=== PATIENT | male | born 1965 | race Caucasian/White ===

== ENCOUNTER 2017-03-14 07:51 | Day surgery (SDC) | payer OTHER ==
[2017-03-11 09:27] VITALS: BMI 34.0
[~2017-03-14] VITALS: Ht 175.3 cm; Wt 106.4 kg
[~2017-03-14 07:51] MED LIST: INDOMETHACIN 50 MG SUPP PR ONE; LACTATED RINGER'S 1000ML 1,000 ML IV SCH; OXYC15TA89 PO; SERT50TA PO; SIMV40TA4 PO; TIZA4CAP PO; [UNRECOGNIZED DRUG - CODE] PO
--- NOTE | 2017-03-14 08:21 | Endo History and Physical ---
History & Physical Date of Service: Mar 14, 2017. Chief Complaint: Abdominal pain Referring Physician: History of Present Illness Patient presents for evaluation of abdominal pain and elevated LAEs. Planning for EGD / EUS and posible ERCP if CBD stones found. Past Medical History Asthma, High Cholesterol, Hypertension Past Surgical History Hx Cardiac Surgery: No Hx Abdominal Surgery: Yes (REPAIR INCISIONAL HERNIA) Hx Post-Op Nausea and Vomiting: No Hx Cancer Surgery: Yes (LT PARTIAL NEPHRECTOMY) Hx Thoracic Surgery: No Hx Orthopedic: Yes (BILAT CTR,BILAT ULNAR NERVE, BILAT SHOULDER OPEN SX,BILAT KNEE SCOPES) Hx Urinary Tract Surgery: Yes (RT KIDNEY CYST, CYSTO LITHO MULTIPLE TIMES,) Social History Smoking Status: Never Smoker Hx Substance Use: No Hx Alcohol Use: No Allergies Coded Allergies: Adhesives (Verified Allergy, Unknown, REDNESS, 03/11/17) Bupropion (Unverified Allergy, Unknown, per records , 03/11/17) Pravastatin (Unverified Allergy, Unknown, per records , 03/11/17) Current Medications Reported Home Medications Medications Dose Route/Sig Max Daily Dose Days Date Category Dose Instructions Zoloft (Sertraline HCl) 50 Mg Tab 50 Mg PO QPM 03/11/17 Reported Zanaflex (Tizanidine HCl) 4 Mg Cap 4 Mg PO TID 03/11/17 Reported Oxymorphone Hydrochloride (Oxymorphone HCl) 10 Mg Tab 1 Tab PO TID PRN 03/11/17 Reported extended release Oxycontin (Oxycodone Hcl) 15 Mg Tab 10 Mg PO Q12 PRN 03/11/17 Reported Zocor (Simvastatin) 40 Mg Tab 40 Mg PO QPM 09/09/14 Reported Vital Signs Weight (Kilograms): 106.36 Height (Feet): 5 Height (Inches): 9 Physical Exam General Appearance: no apparent distress Respiratory/Chest: Auscultation: breath sounds normal Cardiovascular: Heart Auscultation: RRR Abdomen: Inspection & Palpation: soft, RUQ tenderness Assessment and Plan Patient for evalaution of abdominal pain associated with elevated liver tests. Given history we are concerned about possible CBD stones. We are planning for endoscopic evaluation this morning. We have discussed the risks to include bleeding, infection, perforation, pain, pancreatitis, and cardiovascular problems. Plan EGD / EUS and ERCP if found to have CBD stones
[2017-03-14] MEDS ORDERED: OXYC-164 PO (08:33)
[2017-03-14] MEDS ORDERED: zofran SL (08:35)
[2017-03-14 08:42] VITALS: BP 110/61; PULSE 47; TEMP 37; O2SAT 93; BMI 34.0
[2017-03-14 09:06] LABS: INR 1.1 (0.9-1.1); PROTHROMBIN TIME (PATIENT) 11.7 SECONDS (9.0-12.0)
[2017-03-14 09:20] VITALS: Ht 175.3 cm; Wt 106.4 kg
[2017-03-14] MEDS ORDERED: GLYCOPYRROLATE INJ 0.2 MG/ML VIAL ONE (11:13)
[2017-03-14] MEDS ORDERED: DEXAMETHASONE SOD INJ 4 MG/ML VIAL ONE (11:13)
[2017-03-14] MEDS ORDERED: ROCURONIUM BROMIDE 10 MG/ML 5 ML VIAL ONE (11:13)
[2017-03-14] MEDS ORDERED: NEOSTIGMINE METHYLSULFATE 5 MG/5 ML SYR ONE (11:13)
[2017-03-14] MEDS ORDERED: PROPOFOL IV EMULSION 10 MG/ML 20 ML VIAL IV ONE (11:13)
[2017-03-14] MEDS ORDERED: ONDANSETRON INJ 2 MG/ML 2 ML VIAL ONE (11:13)
[2017-03-14] MEDS ORDERED: LIDOCAINE HCL 2% 2 ML VIAL (20MG/ML) ONE (11:13)
[2017-03-14] MEDS ORDERED: FENTANYL CITRATE INJ 50 MCG/1 ML 2 ML VIAL ONE (11:14)
[2017-03-14] MEDS ORDERED: MIDAZOLAM HCL 1 MG/ML 2ML VIAL ONE (11:14)
[2017-03-14] MEDS ORDERED: INDOMETHACIN 50 MG SUPP PR ONE (11:20)
--- NOTE | 2017-03-14 11:49 | GI REPORT ---
Procedure Date: 03/14/2017 11:21 AM Procedure: Upper GI endoscopy Indications: Epigastric abdominal pain Medicines: General Anesthesia Complications: No immediate complications. Estimated blood loss: Minimal. Estimated Blood Loss: Estimated blood loss was minimal. Procedure: Pre-Anesthesia Assessment: - Prior to the procedure, a History and Physical was performed, and patient medications, allergies and sensitivities were reviewed. The patient's tolerance of previous anesthesia was reviewed. - The risks and benefits of the procedure and the sedation options and risks were discussed with the patient. All questions were answered and informed consent was obtained. - Patient identification and proposed procedure were verified prior to the procedure by the physician, the nurse and the supervisor instrument mechanics. The procedure was verified in the procedure room. - Pre-procedure physical examination revealed no contraindications to sedation. - ASA Grade Assessment: III - A patient with severe systemic disease. - After reviewing the risks and benefits, the patient was deemed in satisfactory condition to undergo the procedure. - The anesthesia plan was to use general anesthesia. - Immediately prior to administration of medications, the patient was re-assessed for adequacy to receive sedatives. - The heart rate, respiratory rate, oxygen saturations, blood pressure, adequacy of pulmonary ventilation, and response to care were monitored throughout the procedure. - The physical status of the patient was re-assessed after the procedure. After obtaining informed consent, the endoscope was passed under direct vision. Throughout the procedure, the patient's blood pressure, pulse, and oxygen saturations were monitored continuously. The scope was introduced through the mouth, and advanced to the third part of duodenum. The upper GI endoscopy was accomplished without difficulty. The patient tolerated the procedure well. Findings: The upper third of the esophagus and middle third of the esophagus were normal. The Z-line was irregular and was found 42 cm from the incisors. Biopsies were taken with a cold forceps for histology. Estimated blood loss was minimal. Evidence of a prior Angie fundoplication was found in the cardia. This was characterized by healthy appearing mucosa. The entire examined stomach was normal. Estimated blood loss was minimal. Biopsies were taken with a cold forceps for histology. Estimated blood loss was minimal. The examined duodenum was normal. Biopsies for histology were taken with a cold forceps for for evaluation of celiac disease. Estimated blood loss was minimal. Impression: - Normal upper third of esophagus and middle third of esophagus. - Z-line irregular, 42 cm from the incisors. Biopsied. - A Angie fundoplication was found, characterized by healthy appearing mucosa. - Normal stomach. Biopsied. - Normal examined duodenum. Biopsied. Recommendation: - Perform an upper endoscopic ultrasound (UEUS) today. - Await pathology results. Leander Cuellar D.O. Leander Cuellar DO 03/14/2017 11:49:33 AM This report has been signed electronically. Note Initiated On: 03/14/2017 11:21 AM I attest to the content of the Intraoperative Record and orders documented therein, exceptions below
--- NOTE | 2017-03-14 12:04 | GI REPORT ---
Procedure Date: 03/14/2017 11:11 AM Procedure: Upper EUS Indications: Abnormal liver function test, Suspected choledocholithiasis Medicines: General Anesthesia Complications: No immediate complications. Estimated blood loss: Minimal. Estimated Blood Loss: Estimated blood loss was minimal. Procedure: Pre-Anesthesia Assessment: - Prior to the procedure, a History and Physical was performed, and patient medications, allergies and sensitivities were reviewed. The patient's tolerance of previous anesthesia was reviewed. - The risks and benefits of the procedure and the sedation options and risks were discussed with the patient. All questions were answered and informed consent was obtained. - Patient identification and proposed procedure were verified prior to the procedure by the physician, the nurse and the steamer operator. The procedure was verified in the procedure room. - Pre-procedure physical examination revealed no contraindications to sedation. - ASA Grade Assessment: III - A patient with severe systemic disease. - After reviewing the risks and benefits, the patient was deemed in satisfactory condition to undergo the procedure. - The anesthesia plan was to use general anesthesia. - Immediately prior to administration of medications, the patient was re-assessed for adequacy to receive sedatives. - The heart rate, respiratory rate, oxygen saturations, blood pressure, adequacy of pulmonary ventilation, and response to care were monitored throughout the procedure. - The physical status of the patient was re-assessed after the procedure. After obtaining informed consent, the endoscope was passed under direct vision. Throughout the procedure, the patient's blood pressure, pulse, and oxygen saturations were monitored continuously. The Endosonoscope was introduced through the mouth, and advanced to the second part of duodenum. The upper EUS was accomplished without difficulty. The patient tolerated the procedure well. Findings: Endosonographic Finding : There was no sign of significant endosonographic abnormality in the ampulla. No masses were identified. Moderate hyperechoic material consistent with sludge was visualized endosonographically in the gallbladder. There was dilation in the common bile duct which measured up to 6.6 mm. There was no sign of significant endosonographic abnormality in the liver. Homogeneous parenchyma and no focal pathology were identified. There was no sign of significant endosonographic abnormality in the entire pancreas. No masses, no cysts, the pancreatic duct was thin in caliber and measured 1.2 mm in the body. No lymphadenopathy seen. There was no sign of significant endosonographic abnormality in the left adrenal gland. No adrenal gland enlargement was identified. Impression: - Normal ampulla. - Hyperechoic material consistent with sludge was visualized endosonographically in the gallbladder. - Mild dilation in the common bile duct which measured up to 6.6 mm. - Visualized portion of liver were normal. - Normal pancreas. - Normal left adrenal - No specimens collected. Recommendation: - Discharge patient to home (ambulatory). - Advance diet as tolerated today. - Refer to a surgeon at appointment to be scheduled. Leander Cuellar D.O. Leander Cuellar, 03/14/2017 12:04:22 PM This report has been signed electronically. Note Initiated On: 03/14/2017 11:11 AM I attest to the content of the Intraoperative Record and orders documented therein, exceptions below
--- NOTE | 2017-03-14 12:06 | [facility] Post Operative Brief Note ---
Immediate Operative Summary Operative Date Mar 14, 2017. Pre-Operative Diagnosis abdominal pain Post-Operative Diagnosis Gallbladder sludge Possible barretts esophagus Procedure(s) Performed upper endoscopy, endoscopic ultrasound Surgeon Dr. Anita Cuellar Coil Machine Operator Surgeon(s) None Estimated Blood Loss None Findings possible barretts esophagus Sludge in the gallbladder Specimens 1) Duodenal biopsies 2) Gastric biopsies 3) Esophageal biopsies Anesthesia Genreal Complication(s) None Disposition Recovery Room / PACU
--- NOTE | 2017-03-14 12:07 | Discharge Instructions ---
Endoscopy Patient Instructions Date / Procedure(s) Performed Mar 14, 2017. EGD, Other (Endoscopic ultrasound) Allergy Information Coded Allergies: Adhesives (Verified Allergy, Unknown, REDNESS, 03/11/17) Bupropion (Verified Allergy, Unknown, per records , 03/14/17) Pravastatin (Verified Allergy, Unknown, per records , 03/14/17) Discharge Date / Findings Mar 14, 2017. Possible Barretts Esophagus Sludge in the Gallbladder Medication Instructions Reported Home Medications Medications Dose Route/Sig Max Daily Dose Days Date Category Dose Instructions [zofran] 1 Tab SL Q8 PRN 03/14/17 Reported Oxycodone Hcl 10 Mg Tab 1 Tab PO BID PRN 30 03/14/17 Reported Zoloft (Sertraline HCl) 50 Mg Tab 50 Mg PO QPM 03/11/17 Reported Zanaflex (Tizanidine HCl) 4 Mg Cap 4 Mg PO TID 03/11/17 Reported Oxymorphone Hydrochloride (Oxymorphone HCl) 10 Mg Tab 1 Tab PO TID PRN 03/11/17 Reported extended release Zocor (Simvastatin) 40 Mg Tab 40 Mg PO QPM 09/09/14 Reported Provider Instructions Activity Restrictions - No exercising or heavy lifting for 24 hours. - Do not drink alcohol the day of the procedure. - Do not drive a car or operate machinery until the day after the procedure. - Do not make any important decisions or sign important papers in 24 hours after the procedure. Following Day: - Return to full activity which may include returning to work/school. Diet Start your diet with liquids and light foods (jello, soup, juice, toast). Then eat your usual diet if not nauseated. Treatment For Common After Affects For mild abdominal pain, bloating, or excessive gas: - Rest - Eat lightly - Lie on right side Follow-Up Information Referral to General Surgery to consider Gallbladder Surgery Anesthesia Information What You Should Know You have had a procedure that required some medicine to reduce anxiety and discomfort. This treatment is called moderate sedation. After receiving the treatment, you may be sleepy, but you will be able to breathe on your own. The effects of the treatment may last for several hours. Follow these instructions along with Activity/Diet recommendations noted above: * Do NOT do anything where dizziness or clumsiness would be dangerous. * Rest quietly at home today, then you can be up and about tomorrow. * Have a responsible person stay with you the rest of today. * You may have had an I.V. today. If so, you may take the dressing off later today. Recommendations Call your doctor if: * Trouble breathing * Continuous vomiting for more than 24 hours * Temperature above 101 degrees * Severe abdominal pain or bloating * Pain not relieved by pain medicine ordered * There is increased drainage or redness from any incision * A large amount of rectal bleeding greater than 2-3 tablespoons. (If you had a polyp/s removed or have hemorrhoids, a small amount of blood - from the rectum is to be expected.) * You have any unanswered questions or concerns. IN THE EVENT OF A SERIOUS EMERGENCY, GO TO THE NEAREST EMERGENCY ROOM Your discharge instructions were prepared by provider Leander Cuellar. Patient Instructions Signature Page Jah Victoria Patient (or Guardian) Signature/Date: I have read and understand the instructions given to me by my caregivers. Caregiver/RN/Doctor Signature/Date: The above-named patient and/or guardian has received patient instructions on this date. + Original Patient Signature Page (only) stays with chart. Please make copy for patient.
[2017-03-14] MEDS ORDERED: ONDANSETRON INJ 2 MG/ML 2 ML VIAL IV PRN (12:15)
[2017-03-14] MEDS ORDERED: SUCCINYLCHOLINE CHLORIDE 20 MG/ML 10 ML VIAL IV ONE (12:19)
[2017-03-14] MEDS ORDERED: EpHEDrine SULFATE INJ 50 MG/ML AMP IV PRN (12:30)
[2017-03-14] MEDS ORDERED: ATROPINE SULFATE 0.1 MG/ML 5ML SYR IV PRN (12:30)
--- NOTE | 2017-03-14 12:30 | Anesthesiology Progress Note ---
Anesthesia Post Op Note Date & Time Mar 14, 2017 at 12:30 Vital Signs Pain Intensity: 0 Vital Signs Past 12 Hours Date Time Temp Pulse Resp B/P (MAP) Pulse Ox O2 Delivery O2 Flow Rate FiO2 03/14/17 12:20 76 16 103/73 96 Mask 10 03/14/17 12:13 36.8 72 16 143/74 99 Mask 10 03/14/17 08:42 37.0 47 18 110/61 (77) 93 Room Air Notes Mental Status: alert / awake / arousable, participated in evaluation Pt Amnestic to Procedure: Yes Nausea / Vomiting: adequately controlled Pain: adequately controlled Airway Patency, RR, SpO2: stable & adequate BP & HR: stable & adequate Hydration State: stable & adequate Anesthetic Complications: no major complications apparent
[2017-03-14 13:03] VITALS: BP 122/57; PULSE 58; TEMP 36.7; O2SAT 91
[2017-03-14 13:30] VITALS: BP 126/67; PULSE 53; O2SAT 91
== END 2017-03-14 14:15 | disposition home or self-care (01) ==
LOC: C.ACU 07:51
PROVIDERS: ATTEND Internal Medicine Gastroenterology
DX: K20.9 Esophagitis, unspecified (principal); K83.8 Other specified diseases of biliary tract; K82.8 Other specified diseases of gallbladder; I10 Essential (primary) hypertension; E78.00 Pure hypercholesterolemia, unspecified; J45.909 Unspecified asthma, uncomplicated; Z79.899 Other long term (current) drug therapy

== ENCOUNTER 2017-05-20 06:28 | Emergency (ER) | payer OTHER ==
[~2017-05-20] VITALS: Ht 177.8 cm; Wt 98.5 kg
[~2017-05-20 06:28] MED LIST changes: -INDOMETHACIN 50 MG SUPP PR ONE; -LACTATED RINGER'S 1000ML 1,000 ML IV SCH; +OXYC-164 PO; -OXYC15TA89 PO; +zofran SL
[2017-05-20 06:32] VITALS: Ht 177.8 cm; Wt 98.5 kg
[2017-05-20] MEDS ORDERED: SODIUM CHLORIDE 0.9% 1000ML 2,000 ML IV ONE (06:45)
[2017-05-20] MEDS ORDERED: ONDANSETRON INJ 2 MG/ML 2 ML VIAL IV PRN (06:45)
[2017-05-20] MEDS: MoRPHine SULFATE 10 MG/ML CARP/VIAL IV PRN ×3 (07:01→12:51)
[2017-05-20 07:16] LABS: BASO % 0.1 %; BASO ABS # 0.02 K/uL (0-0.2); COMPLETE YES; HEMATOCRIT 47.2 % (42-52); IG% 0.3 %; LYMPH % 6.9 %; LYMPH ABS # 1.02 K/uL (1.2-3.4); MEAN CELL VOLUME 86.8 fL (80-100); MEAN CORPUSCULAR HEMOGLOBIN 28.9 pg (25-34); MEAN CORPUSCULAR HGB CONC 33.3 g/dl (32-36); MEAN PLATELET VOLUME 8.8 fL (7.4-10.4); MONO % 4.4 %; NEUT % 88.3 %; PLATELET COUNT 370 K/uL (130-400); RED BLOOD COUNT 5.44 M/uL (4.7-6.1); WHITE BLOOD COUNT 14.84 K/uL (4.8-10.8)
[2017-05-20 07:25] LABS: ALT/SGPT 73 U/L (12-78); BLOOD UREA NITROGEN 3 mg/dl (7-18); BUN/CREATININE RATIO 2.6 (10-20); CALCIUM 9.4 mg/dl (8.5-10.1); CARBON DIOXIDE 24 mmol/L (21-32); CHLORIDE 105 mmol/L (98-107); GLUCOSE 127 mg/dl (70-99); POTASSIUM 4.2 mmol/L (3.5-5.1); SODIUM 140 mmol/L (136-145)
[2017-05-20 07:26] LABS: PARTIAL THROMBOPLASTIN RATIO 1.2; PROTHROMBIN TIME (PATIENT) 10.9 SECONDS (9.0-12.0)
[2017-05-20 07:30] LABS: ALB/GLOB RATIO 0.8 (0.9-2); ALKALINE PHOSPHATASE 189 U/L (45-117); AST/SGOT 92 U/L (15-37)
[2017-05-20] MEDS ORDERED: PROMETHAZINE HCL INJ 12.5 MG in SODIUM CHLORIDE 0.9% 50ML 50 ML IV STA (08:12)
--- NOTE | 2017-05-20 08:18 | EMERGENCY ROOM VISIT NOTE ---
History Report prepared by Kenny: Marjorie Neal Under the Supervision of: Dr. Luis E Kirkpatrick M.D. First contact with patient: 06:39 Chief Complaint: ILLNESS Stated Complaint: DRY HEAVES SINCE 1AM,CHILLS,SWEATS,LIVER ENZYMES History of Present Illness The patient is a 51 year old male who presents to the Emergency Room with complaints of persistent vomiting starting 0100 today. The patient also has chills and diaphoresis. He had these same symptoms 4 months ago and was seen in the ED at [place]. They found that his liver enzymes were high in the 300s. He was seen by gastroenterology and had a scope. They found the issue was with his gallbladder and he had a cholecystectomy. 2 weeks later, he had the same symptoms, so he was taken off his Zoloft and simvastatin. His liver enzymes have come back down to normal, but he is having the same symptoms again today. He denies any alcohol use. He has a history of chronic back pain and is on oxymorphone and oxycodone. He denies any changes in his medication doses. He last had his pain medicines at 2100 last night. He denies any history of problems with his pancreas. His last scope showed no issues with his pancreas. Source of History: patient, family Onset: 99 today Position: other (global) Quality: other (vomiting) Timing: other (persistent) Associated Symptoms: + chills, + diaphoresis Review of Systems All systems have been listed, reviewed, and are negative other than those previously mentioned. Please see Additional Medical History Sheet. Past Medical & Surgical Medical Problems: (1) Chronic back pain Surgical Problems: (1) S/P cholecystectomy Family History Diabetes mellitus Gallbladder disease Heart disease Hypertension Kidney disease Kidney stones Social History Smoking Status: Never Smoker Smokeless Tobacco Use: Yes Housing Status: lives with family Current/Historical Medications Scheduled Tizanidine (Zanaflex), 4 MG PO TID Scheduled PRN Oxycodone Hcl (Oxycodone Hcl), 1 TAB PO BID PRN for Pain Oxymorphone HCl (Oxymorphone Hydrochloride), 1 TAB PO TID PRN for Pain Allergies Coded Allergies: Adhesives (Verified Allergy, Unknown, REDNESS, 05/20/17) Bupropion (Verified Allergy, Unknown, per records , 05/20/17) Pravastatin (Verified Allergy, Unknown, per records , 05/20/17) Physical Exam Vital Signs Date Time Temp Pulse Resp B/P (MAP) Pulse Ox O2 Delivery O2 Flow Rate FiO2 05/20/17 13:00 36.8 64 18 144/79 94 05/20/17 12:53 64 18 144/79 94 Room Air 05/20/17 12:23 60 21 139/70 97 05/20/17 11:20 58 05/20/17 10:30 60 13 162/82 95 05/20/17 10:00 73 11 151/78 95 05/20/17 09:30 64 21 138/85 95 05/20/17 09:00 63 21 144/86 96 05/20/17 08:30 72 21 168/88 95 05/20/17 08:10 155/77 05/20/17 07:30 64 21 160/89 94 05/20/17 07:08 63 12 153/84 95 Room Air 05/20/17 07:05 74 05/20/17 06:32 36.8 105 18 149/108 96 Physical Exam GENERAL: Patient awake, alert, oriented x 3. Patient appears in moderate to severe distress. Patient follows commands. Patient is adequately hydrated and well-nourished. SKIN: Very diaphoretic. HEENT: Normal head, pupils equal, reactive to light and accommodation. Oral cavity and posterior pharynx appear normal. Mucous membranes appear dry. Neck : Without adenopathy, no neck vein distention. LUNGS: Clear to auscultation. No wheezes, no rales, no rhonchi. HEART: No murmurs. No gallops. No rubs ABDOMEN: Well healed mid abdominal scar. Generalized tenderness right greater than left. No masses, no rebound, no hepatomegaly or splenomegaly. EXTREMITIES: No signs of trauma or infection. NEUROLOGIC: Cranial nerves II-XII within normal limits. No gross motor sensory function deficits. Medical Decision & Procedures ER Provider Diagnostic Interpretation: X ray results are stated below per my interpretation and the radiologist's interpretation. KUB CLINICAL HISTORY: Right-sided abdominal pain. FINDINGS: 3 AP supine abdominal radiographs are obtained. No prior studies are available for comparison at the time of dictation. Surgical clips are seen in the upper abdomen. There is a nonobstructed abdominal bowel gas pattern noting mild to moderate colonic fecal retention. No evidence of intraperitoneal free air is seen. There is no radiographic evidence of nephrolithiasis. Fusion hardware is noted in the lumbar spine. The lung bases appear clear. IMPRESSION: Nonobstructed abdominal bowel gas pattern. Electronically signed by: Nelson Villanueva M.D. 05/20/2017 11:36 AM Dictated Date/Time: 05/20/2017 11:35 AM Laboratory Results 05/20/17 06:58 Red Blood Count 5.44, Mean Corpuscular Volume 86.8, Mean Corpuscular Hemoglobin 28.9, Mean Corpuscular Hemoglobin Concent 33.3, Mean Platelet Volume 8.8, Neutrophils (%) (Auto) 88.3, Lymphocytes (%) (Auto) 6.9, Monocytes (%) (Auto) 4.4, Eosinophils (%) (Auto) 0.0, Basophils (%) (Auto) 0.1, Neutrophils # (Auto) 13.10, Lymphocytes # (Auto) 1.02, Monocytes # (Auto) 0.66, Eosinophils # (Auto) 0.00, Basophils # (Auto) 0.02 05/20/17 06:58 Test 05/20/17 06:58 05/20/17 08:08 White Blood Count 14.84 K/uL (4.8-10.8) Red Blood Count 5.44 M/uL (4.7-6.1) Hemoglobin 15.7 g/dL (14.0-18.0) Hematocrit 47.2 % (42-52) Mean Corpuscular Volume 86.8 fL (80-100) Mean Corpuscular Hemoglobin 28.9 pg (25-34) Mean Corpuscular Hemoglobin Concent 33.3 g/dl (32-36) Platelet Count 370 K/uL (130-400) Mean Platelet Volume 8.8 fL (7.4-10.4) Neutrophils (%) (Auto) 88.3 % Lymphocytes (%) (Auto) 6.9 % Monocytes (%) (Auto) 4.4 % Eosinophils (%) (Auto) 0.0 % Basophils (%) (Auto) 0.1 % Neutrophils # (Auto) 13.10 K/uL (1.4-6.5) Lymphocytes # (Auto) 1.02 K/uL (1.2-3.4) Monocytes # (Auto) 0.66 K/uL (0.11-0.59) Eosinophils # (Auto) 0.00 K/uL (0-0.5) Basophils # (Auto) 0.02 K/uL (0-0.2) RDW Standard Deviation 41.9 fL (36.4-46.3) RDW Coefficient of Variation 13.3 % (11.5-14.5) Immature Granulocyte % (Auto) 0.3 % Immature Granulocyte # (Auto) 0.04 K/uL (0.00-0.02) Prothrombin Time 10.9 SECONDS (9.0-12.0) Prothromb Time International Ratio 1.0 (0.9-1.1) Activated Partial Thromboplast Time 31.5 SECONDS (21.0-31.0) Partial Thromboplastin Ratio 1.2 Anion Gap 11.0 mmol/L (3-11) Est Creatinine Clear Calc Drug Dose 102.8 ml/min Estimated GFR () 100.6 Estimated GFR (Non- 86.8 BUN/Creatinine Ratio 2.6 (10-20) Calcium Level 9.4 mg/dl (8.5-10.1) Total Bilirubin 0.8 mg/dl (0.2-1) Aspartate Amino Transf (AST/SGOT) 92 U/L (15-37) Alanine Aminotransferase (ALT/SGPT) 73 U/L (12-78) Alkaline Phosphatase 189 U/L (45-117) Troponin I < 0.015 ng/ml (0-0.045) Total Protein 8.5 gm/dl (6.4-8.2) Albumin 3.8 gm/dl (3.4-5.0) Globulin 4.7 gm/dl (2.5-4.0) Albumin/Globulin Ratio 0.8 (0.9-2) Lipase 100 U/L (73-393) Urine Color YELLOW Urine Appearance CLEAR (CLEAR) Urine pH 6.0 (4.5-7.5) Urine Specific Crane 1.011 (1.000-1.030) Urine Protein TRACE (NEG) Urine Glucose (UA) NEG (NEG) Urine Ketones NEG (NEG) Urine Occult Blood 1+ (NEG) Urine Nitrite NEG (NEG) Urine Bilirubin NEG (NEG) Urine Urobilinogen NEG (NEG) Urine Leukocyte Esterase NEG (NEG) Urine WBC (Auto) 1-5 /hpf (0-5) Urine RBC (Auto) 5-10 /hpf (0-4) Urine Hyaline Casts (Auto) 10-30 /lpf (0-5) Urine Epithelial Cells (Auto) 20-30 /lpf (0-5) Urine Bacteria (Auto) NEG (NEG) Laboratory results as stated above per my review. Medications Administered Medications (Trade) Dose Ordered Sig/Tee Route Start Time Stop Time Status Last Admin Dose Admin Morphine Sulfate (MoRPHine SULFATE INJ) 8 mg Q1H PRN IV 05/20/17 06:45 05/20/17 13:38 DC 05/20/17 12:51 8 MG Ondansetron HCl (Zofran Inj) 4 mg Q1HWA PRN IV 05/20/17 06:45 05/20/17 13:38 DC 05/20/17 07:01 4 MG Sodium Chloride 2,000 ml @ 1,000 mls/hr Q2H ONCE IV 05/20/17 06:45 05/20/17 08:44 DC 05/20/17 07:01 1,000 MLS/HR Promethazine HCl 12.5 mg/Sodium Chloride 50.5 ml @ 204 mls/hr NOW STAT IV 05/20/17 08:12 05/20/17 08:26 DC 05/20/17 08:22 204 MLS/HR Sodium Chloride 1,000 ml @ 1,000 mls/hr Q1H ONCE IV 05/20/17 10:00 05/20/17 10:59 DC 05/20/17 10:28 1,000 MLS/HR Dicyclomine HCl (Bentyl Cap) 20 mg NOW ONCE PO 05/20/17 10:45 05/20/17 10:47 DC 05/20/17 11:03 20 MG ECG Indication: diaphoresis Rate (beats per minute): 72 Rhythm: normal sinus Findings: no acute ischemic change, no ectopy ED Course 0640: Past medical records reviewed. The patient was evaluated in room B6. A complete history and physical examination was performed. 0645: NSS 2000 ml @ 1000 mls/hr IV, Zofran Inj 4 mg IV, Morphine Sulfate 8 mg IV. 0812: Promethazine HCl 12.5 mg/Sodium Chloride 50.5 ml @ 204 mls/hr IV. 0926: I reevaluated the patient. He still has some pain, but no nausea. He will try to drink some water. 1000: NSS 1000 ml @ 1000 mls/hr IV. 1015: I reevaluated the patient. He feels the same as before. He will receive more fluids. 1037: I discussed the patient's case with Diana Chavis gastroenterology. He recommends a KUB and Bentyl. 1045: Bentyl Cap 20 mg PO. 1046: I reevaluated the patient. I updated him on the plan. 1237: Upon reevaluation, the patient still had some shakes. He states that he would like to go home. I discussed today's findings with him. He verbalized agreement of the treatment plan. He was discharged home. Medical Decision Nurses notes reviewed. Medical history sheet reviewed. Differential diagnosis includes but is not limited to: pancreatitis, peptic/gastric ulcer disease, common bile duct stone. Multiple labs and imaging were obtained. Please see above. White count is slightly elevated. Patient has minimal elevation of his liver enzymes but less so than in the past. I reviewed old records from [place] where he has had a past cholecystectomy and ERCP. I also spoke with Dr. Cuellar over the phone. KUB reveals increased stool. The patient states that he has been moving his bowels. He last used MiraLAX about 3 days ago. The patient was given Bentyl here. I believe the patient can safely return home but will need follow-up with Dr. Cuellar. Medication Reconcilliation Current Medication List: was personally reviewed by me Blood Pressure Screening Patient's blood pressure: Elevated blood pressure Blood pressure disposition: Referred to PCP Consults Time Called: 1020 Consulting Physician: Diana Chavis gastroenterology Returned Call: [phone] I discussed the patient's case with him. He recommends a KUB and Bentyl. Impression Primary Impression: Right sided abdominal pain Scribe Attestation The scribe's documentation has been prepared under my direction and personally reviewed by me in its entirety. I confirm that the note above accurately reflects all work, treatment, procedures, and medical decision making performed by me. Departure Information Dispostion Home / Self-Care Referrals Anastasia Swan (PCP) Leander Cuellar, DO Patient Instructions My [facility] Additional Instructions One Bentyl every 6 hours as needed for abdominal pain. One Phenergan every 6 hours as needed for nausea. Follow-up with Dr. Cuellar as directed. Take 1 dose of MiraLAX today.
[2017-05-20 08:31] LABS: URINE APPEARANCE CLEAR (CLEAR); URINE BILIRUBIN NEG (NEG); URINE COLOR YELLOW; URINE EPITHELIAL CELL AUTO 20-30 /lpf (0-5); URINE NITRITE NEG (NEG); URINE SPECIFIC GRAVITY 1.011 (1.000-1.030); UROBILINOGEN NEG (NEG); ZZUR CULT IF INDIC CLEAN CATCH NO
[2017-05-20 08:35] LABS: MANUAL MICROSCOPIC REQUIRED? NO; REVIEW REQ? NO
[2017-05-20] MEDS ORDERED: SODIUM CHLORIDE 0.9% 1000ML 1,000 ML IV ONE (10:00)
[2017-05-20] MEDS ORDERED: DICYCLOMINE HCL 10 MG CAP PO ONE (10:45)
--- NOTE | 2017-05-20 11:37 | DIAGNOSTIC IMAGING REPORT ---
KUB CLINICAL HISTORY: Right-sided abdominal pain. FINDINGS: 3 AP supine abdominal radiographs are obtained. No prior studies are available for comparison at the time of dictation. Surgical clips are seen in the upper abdomen. There is a nonobstructed abdominal bowel gas pattern noting mild to moderate colonic fecal retention. No evidence of intraperitoneal free air is seen. There is no radiographic evidence of nephrolithiasis. Fusion hardware is noted in the lumbar spine. The lung bases appear clear. IMPRESSION: Nonobstructed abdominal bowel gas pattern. Electronically signed by: Nelson Villanueva M.D. 05/20/2017 11:36 AM Dictated Date/Time: 05/20/2017 11:35 AM
[2017-05-20 13:00] VITALS: BP 144/79; PULSE 64; TEMP 36.8; O2SAT 94
== END 2017-05-20 13:01 | disposition home or self-care (01) ==
LOC: C.EDB 06:30
DX: R11.10 Vomiting, unspecified (principal); R10.9 Unspecified abdominal pain; Z98.890 Other specified postprocedural states; M54.9 Dorsalgia, unspecified; G89.29 Other chronic pain; Z79.899 Other long term (current) drug therapy; Z79.891 Long term (current) use of opiate analgesic; Z83.3 Family history of diabetes mellitus; Z82.49 Family history of ischemic heart disease and other diseases of the circulatory system; Z84.1 Family history of disorders of kidney and ureter